=== PATIENT | female | born 1955 | race Hispanic/Latino ===

== ENCOUNTER 2017-02-16 12:00 | Day surgery (SDC) | payer BC ==
[2017-02-16 13:30] LABS: INR 1.29 (0.87-1.13)
[2017-02-16 13:31] LABS: Partial Thromboplastin Time 35.7 Sec. (24.2-36.6)
[2017-02-16] MEDS ORDERED: ALBURX 25% (ALBUMIN) IV PRN (15:35)
--- NOTE | 2017-02-16 15:49 | Ultrasound Report ---
ULTRASOUND PARACENTESIS History: Ascites. Description of procedure: Informed consent was obtained. Sterile technique was utilized. Using ultrasound guidance, paracentesis was performed in the left lower quadrant. There was spontaneous return of clear yellow fluid. 7.9 L of fluid was aspirated. No complications. Impression: Successful ultrasound-guided paracentesis.
[2017-02-16] MEDS ORDERED: ZOFRAN ONE (16:22)
[2017-02-16] MEDS ORDERED: ZOFRAN IV ONE (16:25)
[2017-02-16 17:02] VITALS: BP 107/60
== END 2017-02-16 17:00 | disposition home or self-care (01) ==
LOC: CATHLABREC 12:00 → EDSTATUS 12:00 → CATHLABREC 17:00
PROVIDERS: ATTEND Internal Medicine Hematology & Oncology
DX: R18.8 Other ascites (principal)
CPT/HCPCS: 36415; 49083; 85610; 85730; 96365; 96374; J2405; P9047